=== PATIENT | female | born 1940 | race Caucasian/White ===

== ENCOUNTER 2021-07-08 10:52 | Outpatient (CLI) | payer MEDICARE | END 2021-07-08 10:53 | disposition home or self-care (01) | LOC: CSHMAMMO 10:52 | PROVIDERS: ATTEND Internal Medicine | DX: Z12.31 Encounter for screening mammogram for malignant neoplasm of breast (principal) | CPT/HCPCS: 77063; 77067 ==

== ENCOUNTER 2021-07-20 08:09 | Outpatient (CLI) | payer MEDICARE | END 2021-07-20 08:10 | disposition home or self-care (01) | LOC: CSHULT 08:09 | PROVIDERS: ATTEND Internal Medicine | DX: K75.4 Autoimmune hepatitis (principal); K76.0 Fatty (change of) liver, not elsewhere classified | CPT/HCPCS: 76705 ==

== ENCOUNTER 2021-12-26 23:23 | Emergency (ER) | payer MEDICARE ==
[2021-12-26] MEDS ORDERED: Aspirin Chewable 81 MG TAB ONE (23:49)
[2021-12-27 00:04] LABS: #Basophils 0.1 10x3/uL (0.0-0.2); #Eosinphils 0.2 10x3/uL (0.0-0.5); #Monocytes 0.8 10x3/uL (0.0-1.1); #Neutrophils 4.2 10x3/uL (1.5-8.4); %Basophils 0.6 % (0.0-2.0); %Eosinophils 2.3 % (0.0-6.0); %Lymphocytes 41.2 % (18.0-47.0); %Monocytes 8.9 % (0.0-10.0); %Neutrophils 46.6 % (40.0-75.0); Hemoglobin 14.3 g/dL (12.0-15.5); Mean Corpuscular HGB CONC 34.7 g/dL (32.0-36.0); Mean Corpuscular Hemoglobin 31.2 pg (27.0-33.0); Mean Corpuscular Volume 89.8 fl (81.6-98.3); Mean Platelet Volume 8.6 fl (7.4-10.4); Platelet Count 297 10x3/uL (150-450); RBC Distribution Width 13.5 % (11.5-14.5); Red Blood Cell (RBC) Count 4.59 10x6/uL (3.90-5.03)
[2021-12-27 00:21] LABS: ALT (SGPT) 62 U/L (8-55); AST (SGOT) 48 U/L (5-34); Albumin 3.9 g/dL (3.4-4.8); Alkaline Phosphatase 89 U/L (40-110); Anion Gap 15 mmol/L (10-20); BUN (Urea Nitrogen) 13 mg/dL (9.8-20.1); Bilirubin, Total 0.5 mg/dL (0.2-1.2); Calc. Creatinine Clearance 0 mL/min (70-130); Calcium 8.8 mg/dL (7.8-10.44); Carbon Dioxide 28 mmol/L (23-31); Chloride 97 mmol/L (98-107); Estimated GFR 76; Globulin 2.4 g/dL (2.4-3.5); Glucose 103 mg/dL (83-110); Lipase 28 U/L (8-78); Potassium 3.4 mmol/L (3.5-5.1); Protein, Total 6.3 g/dL (5.8-8.1); Sodium 137 mmol/L (136-145)
[2021-12-27 02:18] LABS: Troponin I 0.011 ng/mL (< 0.028)
== END 2021-12-27 02:40 | disposition home or self-care (01) ==
LOC: CSHERS 23:23
DX: R07.89 Other chest pain (principal); E03.9 Hypothyroidism, unspecified; I10 Essential (primary) hypertension; Z79.899 Other long term (current) drug therapy
CPT/HCPCS: 36415; 71045; 80053; 83690; 84484; 85025; 93005

== ENCOUNTER 2022-07-26 10:40 | Outpatient (CLI) | payer MEDICARE | END 2022-07-26 10:41 | disposition home or self-care (01) | LOC: CSHMAMMO 10:40 | PROVIDERS: ATTEND Internal Medicine | DX: Z12.31 Encounter for screening mammogram for malignant neoplasm of breast (principal) | CPT/HCPCS: 77063; 77067 ==

== ENCOUNTER 2023-08-08 12:30 | Outpatient (CLI) | payer MEDICARE | END 2023-08-08 12:31 | disposition home or self-care (01) | LOC: CSHMAMMO 12:30 | PROVIDERS: ATTEND Internal Medicine | DX: Z12.31 Encounter for screening mammogram for malignant neoplasm of breast (principal) | CPT/HCPCS: 77063; 77067 ==

== ENCOUNTER 2025-01-29 10:42 | Outpatient (CLI) | payer MEDICARE | END 2025-01-29 10:43 | disposition home or self-care (01) | LOC: CSHRAD 10:42 | PROVIDERS: ATTEND Internal Medicine | DX: K21.9 Gastro-esophageal reflux disease without esophagitis (principal); J39.2 Other diseases of pharynx; K22.5 Diverticulum of esophagus, acquired; R93.3 Abnormal findings on diagnostic imaging of other parts of digestive tract | CPT/HCPCS: 74220 ==

== ENCOUNTER 2025-04-08 17:49 | Observation (INO) | payer MEDICARE ==
[2025-04-08] MEDS ORDERED: Aspirin 325 MG TAB ONE (18:28)
[2025-04-08 18:33] LABS: #Basophils 0.04 10x3/uL (0.0-0.2); #Eosinophils 0.19 10x3/uL (0.0-0.5); #Monocytes 0.62 10x3/uL (0.0-1.1); #Neutrophils 3.18 10x3/uL (1.5-8.4); %Basophils 0.6 % (0.0-2.0); %Eosinophils 3.0 % (0.0-6.0); %Lymphocytes 35.9 % (18.0-47.0); %Monocytes 9.8 % (0.0-10.0); %Neutrophils 50.5 % (40.0-75.0); Hematocrit 41.0 % (34.9-44.5); Hemoglobin 14.0 g/dL (12.0-15.5); Mean Corpuscular Hemoglobin 30.2 pg (27.0-33.0); Mean Corpuscular Volume 88.4 fL (81.6-98.3); Platelet Count 316 10x3/uL (150-450); Red Blood Cell (RBC) Count 4.64 10x6/uL (3.90-5.03); White Blood Cell (WBC) Count 6.30 10x3/uL (3.5-10.5)
[2025-04-08 18:55] LABS: Troponin I Less than 0.010 ng/mL (< 0.028)
[2025-04-08 18:57] LABS: ALT (SGPT) 21 U/L (Less than 34); AST (SGOT) 34 U/L (11-34); Albumin 3.9 g/dL (3.1-4.5); Alkaline Phosphatase 92 U/L (40-110); Anion Gap 11 mmol/L (10-20); BUN (Urea Nitrogen) 10 mg/dL (9.8-20.1); Bilirubin, Total 0.5 mg/dL (0.3-1.2); Calc. Creatinine Clearance 0 mL/min (70-130); Calcium 9.0 mg/dL (7.8-10.44); Carbon Dioxide 28 mmol/L (23-31); Chloride 97 mmol/L (98-107); Globulin 3.2 g/dL (2.4-3.5); Glucose 124 mg/dL (83-110); Lipase 23 U/L (8-78); Potassium 3.1 mmol/L (3.5-5.1); Sodium 133 mmol/L (136-145)
[2025-04-08] MEDS ORDERED: Melatonin 3 MG TAB PO PRN (20:50)
[2025-04-08] MEDS ORDERED: Calcium Carbonate 500 MG ChewTAB PO PRN (20:50)
[2025-04-08] MEDS ORDERED: Ondansetron PF 4 MG/2 ML Vial IVP PRN (20:50)
[2025-04-08] MEDS ORDERED: Senokot S 8.6-50 MG TAB PO PRN (20:50)
[2025-04-08] MEDS ORDERED: Guaifenesin DM 100-10/5 ML UDCUP PO PRN (20:50)
[2025-04-08 22:10] VITALS: BMI 28.3
[2025-04-08] MEDS: Losartan 25 MG TAB PO SCH (22:14)
[2025-04-08] MEDS: Pantoprazole 40 MG VIAL IVP SCH (22:16)
[2025-04-08 22:48] LABS: Troponin I Less than 0.010 ng/mL (< 0.028)
[2025-04-09 01:37] LABS: Troponin I 0.024 ng/mL (< 0.028)
[2025-04-09 05:09] LABS: #Basophils 0.03 10x3/uL (0.0-0.2); #Eosinophils 0.18 10x3/uL (0.0-0.5); #Monocytes 0.62 10x3/uL (0.0-1.1); #Neutrophils 3.73 10x3/uL (1.5-8.4); %Basophils 0.5 % (0.0-2.0); %Eosinophils 2.8 % (0.0-6.0); %Lymphocytes 29.3 % (18.0-47.0); %Monocytes 9.6 % (0.0-10.0); %Neutrophils 57.5 % (40.0-75.0); Hematocrit 36.3 % (34.9-44.5); Hemoglobin 12.7 g/dL (12.0-15.5); Mean Corpuscular Hemoglobin 30.5 pg (27.0-33.0); Mean Corpuscular Volume 87.3 fL (81.6-98.3); Platelet Count 252 10x3/uL (150-450); Red Blood Cell (RBC) Count 4.16 10x6/uL (3.90-5.03); White Blood Cell (WBC) Count 6.48 10x3/uL (3.5-10.5)
[2025-04-09 05:19] LABS: INR-International Normal Ratio 1.0; PTT 39.9 sec (22.0-33.0); Prothrombin Time 10.6 sec (9.5-12.1)
[2025-04-09 05:24] LABS: Anion Gap 11 mmol/L (10-20); BUN (Urea Nitrogen) 9 mg/dL (9.8-20.1); Calc. Creatinine Clearance 65 mL/min (70-130); Calcium 8.5 mg/dL (7.8-10.44); Carbon Dioxide 27 mmol/L (23-31); Cardiac Risk 2.8 (Less than 4.5); Chloride 102 mmol/L (98-107); Cholesterol 202 mg/dl (< 200 Desired); Glucose 104 mg/dL (83-110); HDL Cholesterol 73 mg/dL (>60 Neg Risk); LDL Cholesterol, Calculated 113 mg/dL; Magnesium 1.9 mg/dL (1.6-2.6); Potassium 3.1 mmol/L (3.5-5.1); Sodium 137 mmol/L (136-145); Triglycerides 81 mg/dL (Less than 150)
[2025-04-09 08:53] VITALS: TEMP 97.5
[2025-04-09] MEDS: valACYclovir 500 MG TAB PO SCH (08:53)
[2025-04-09] MEDS: Pantoprazole 40 MG DR.TAB PO SCH (08:53)
[2025-04-09] MEDS: Acetaminophen 325 MG TAB PO PRN (10:58)
[2025-04-09 12:41] VITALS: BP 148/69
[2025-04-09] MEDS ORDERED: Losartan 25 MG TAB PO SCH (21:00)
== END 2025-04-09 15:00 | disposition home or self-care (01) ==
LOC: CSHERS 17:49 → CSHTELE 20:24
PROVIDERS: ADMIT Student in an Organized Health Care Education/Training Program; ATTEND Student in an Organized Health Care Education/Training Program
DX: G45.4 Transient global amnesia (principal); R20.0 Anesthesia of skin; I16.0 Hypertensive urgency; I10 Essential (primary) hypertension; E03.9 Hypothyroidism, unspecified; E87.6 Hypokalemia; E87.1 Hypo-osmolality and hyponatremia; F41.9 Anxiety disorder, unspecified; K75.81 Nonalcoholic steatohepatitis (NASH); R73.03 Prediabetes; Z90.710 Acquired absence of both cervix and uterus; Z90.49 Acquired absence of other specified parts of digestive tract; Z88.0 Allergy status to penicillin; Z88.2 Allergy status to sulfonamides; Z79.890 Hormone replacement therapy; Z79.899 Other long term (current) drug therapy
CPT/HCPCS: 70450; 71045; 80053; 83690; 83880; 84484 ×2; 85025; J2060; J2470; 36415; 70551; 80048; 80061; 83735; 84443; 85610; 85730; 93005; 93010; 93880